=== PATIENT | male | born 1960 | race Caucasian/White ===

== ENCOUNTER 2025-01-27 08:43 | Inpatient (IN) | payer MEDICARE, BC ==
[~2025-01-27] VITALS: Ht 167.6 cm; Wt 71.9 kg
[2025-01-27] VITALS (8 sets, daily range): BP systolic 116–135; BP diastolic 82–94; PULSE 88–114; RESP 15–18; TEMP 96.9–97.6; O2SAT 96–97
--- NOTE | 2025-01-27 08:49 | ELECTROCARDIOGRAPH REPORT ---
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 Elia Reyes Measurements Intervals [place] Rate: 117 P: 82 AL: 133 QRS: 105 QRSD: 177 T: 51 QT: 455 QTc: 635 Interpretive Statements Sinus tachycardia Biatrial enlargement Consider left ventricular hypertrophy Abnormal T, probable ischemia, lateral leads Prolonged QT interval Electronically Signed On 01-27-2025 20:39:[address] Elia Reyes Please click the below link to view image of tracing.
--- NOTE | 2025-01-27 09:14 | RADIOLOGY REPORT ---
CHEST RADIOGRAPH Indication: CP Technique: Single frontal view of the chest was obtained COMPARISON: None FINDINGS: Lines and Tubes: None Lungs: Clear Pleura: No effusion. No pneumothorax. Cardiomediastinal contours: Cardiomegaly Bones: Unremarkable IMPRESSION: Cardiomegaly
[2025-01-27 09:43] LABS: HEMATOCRIT 39.3 % (42.0-52.0); HEMOGLOBIN 13.3 g/dl (14.0-17.9); MEAN CORPUSCULAR HEMOGLOBIN 26.8 PG (27.0-31.0); MEAN CORPUSCULAR HGB CONC 33.8 g/dL (33.0-36.5); MEAN CORPUSCULAR VOLUME 79.2 FL (78-98); MEAN PLATELET VOLUME 8.9 FL (7.4-10.4); PLATELET COUNT 181 X10'3 (140-440); RED BLOOD COUNT 4.97 X10'6 (4.70-6.10); RED CELL DISTRIBUTION WIDTH 16.4 % (11.5-14.5); WHITE BLOOD COUNT 4.6 X10'3 (4.5-11.0)
[2025-01-27 09:44] LABS: BASOPHILS % (AUTO) 0.2 % (0-1); EOSINOPHILS % (AUTO) 0 % (0-6); LYMPHOCYTES # (AUTO) 0.4 X10'3 (1.1-4.8); MONOCYTES # (AUTO) 0.3 X10'3 (0-0.9); MONOCYTES % (AUTO) 5.8 % (2-12)
--- NOTE | 2025-01-27 09:50 | Physician Documentation ---
History of Present Illness ~ Chief Complaint: Shortness of Breath Stated Complaint: SOB Time Seen by MD: 09:26 Primary Medical Doctor: NONE Mode of Arrival: POV HPI 64-year-old male who presents for acute onset shortness of breath that started yesterday. Patient states yesterday after he woke up he noticed that he is getting very short of breath. The shortness of breath has continued and has worsened ever since. He states that he feels like his heart is racing and that he can take in deep breaths. He denies any chest pain, fever, chills or any other associated symptoms. No significant past medical history. Denies any recent travel. He does smoke cigars daily. Medication Reconciliation Allergies: Coded Allergies: No Known Allergies (Unverified , 01/27/25) Review of Systems All Other Systems at this time: Reviewed and Negative Physical Exam Vital Signs: Temperature: 99.0, Source: Oral, Heart Rate: 116, Respiratory Rate: 26, BP: 150/88, Pulse Oximetry: 96, Weight: 71.900 Oxygen Flow Rate: 0 Physical Exam I have reviewed the triage vitals. CONST: Well developed and well nourished. In no acute distress HENT: Head Atraumatic EYES: Pupils are equal, round and reactive to light. Normal conjunctiva NECK: Normal range of motion. Supple. CARDIO: Tachycardic, regular rhythm No murmurs, rubs, or gallops. S1, S2. PULM/CHEST: Tachypnea, lungs are clear to auscultation bilaterally ABD: Soft and nontender. Nondistended. Bowel sounds normal. No guarding. : Exam deferred MSK: No edema. No deformity. NEURO: Alert and oriented to person, place and time. Moving all extremities SKIN: Warm and dry. PSYCH: Normal mood and affect. Good eye contact. Progress Results/Orders Results/Orders Orders - DARBY VALENZUELA MD Chest,Single View (01/27/25 08:54) Monitor (01/27/25 08:54) Saline Lock (01/27/25 08:54) Oxygen (01/27/25 08:54) Hs Troponin I W Calculations (01/27/25 11:54) Hs Troponin I W Calculations (01/27/25 09:43) Culture Blood (01/27/25 09:45) * Oxygen Route-Nasal Cannula * (01/27/25 09:48) Cta Chest Abdomen Pelvis (01/27/25 09:45) Covid19 Binax Poc Result Entry (01/27/25 11:36) Completed Orders - DARBY VALENZUELA MD Electrocardiogram (01/27/25 08:46) Chest,Single View (01/27/25 08:54) Cbc/Diff (01/27/25 08:54) Hs Troponin I W Calculations (01/27/25 10:54) Lacticsepsis (01/27/25 09:45) Normal Saline 500ml Iv Soln (Sodium Chlo (01/27/25 09:45) Morphine 2mg/Ml Inj. (Morphine Inj.) (01/27/25 09:50) Aspirin 325mg Enteric-Coated (Ecotrin 32 (01/27/25 09:50) CMP (01/27/25 10:54) D-Dimer (01/27/25 10:54) PBNP (01/27/25 10:55) Pt Inr (01/27/25 10:55) PTT (01/27/25 10:55) Iohexol 350mg/Ml 100ml (Omnipaque 350mg/ (01/27/25 11:29) Cta Chest Abdomen Pelvis (01/27/25 09:45) Medications Received in ER Medications (Trade) Dose Ordered Sig/Braden Route PRN Reason Start Time Stop Time Status Last Admin Dose Admin Sodium Chloride 500 ml @ 500 mls/hr ONCE ONCE IV 01/27/25 09:45 01/27/25 10:44 DC 01/27/25 10:04 500 MLS/HR (morphine inj.) 2 mg ONCE ONCE IV 01/27/25 09:50 01/27/25 09:51 DC 01/27/25 10:07 2 MG (Ecotrin 325MG tablet) 1 tab ONCE ONCE PO 01/27/25 09:50 01/27/25 09:51 DC 01/27/25 10:07 1 TAB Vital Signs 01/27/25 01/27/25 01/27/25 01/27/25 08:52 09:10 09:15 10:01 Temp 99.0 Pulse 117 116 114 Resp 22 25 26 18 B/P (MAP) 149/95 150/88 (108) 144/90 (108) Pulse Ox 98 96 97 O2 Flow Rate 0 0 2.0 01/27/25 01/27/25 01/27/25 01/27/25 10:01 10:07 11:06 11:24 Pulse 112 Resp 22 16 16 B/P (MAP) 147/101 (116) Pulse Ox 97 94 O2 Delivery Nasal Cannula* O2 Flow Rate 2 2.0 FiO2 28 Laboratory Tests Test 01/27/25 09:04 01/27/25 10:00 01/27/25 10:51 01/27/25 11:40 White Blood Count 4.6 Red Blood Count 4.97 Hemoglobin 13.3 L Hematocrit 39.3 L Mean Corpuscular Volume 79.2 Mean Corpuscular Hemoglobin 26.8 L Mean Corpuscular Hemoglobin Concent 33.8 Red Cell Distribution Width 16.4 H Platelet Count 181 Mean Platelet Volume 8.9 Neutrophils (%) (Auto) 86.0 H Lymphocytes (%) (Auto) 8.0 L Monocytes (%) (Auto) 5.8 Eosinophils (%) (Auto) 0 Basophils (%) (Auto) 0.2 Neutrophils # (Auto) 4.0 Lymphocytes # (Auto) 0.4 L Monocytes # (Auto) 0.3 Eosinophils # (Auto) 0.0 Basophils # (Auto) 0.0 CBC Comment Chemistry Comments Lactic Acid Level 1.7 Prothrombin Time 12.1 H INR International Normalized Ratio 1.2 Activated Partial Thromboplast Time 24 D-Dimer 0.61 H D-Dimer Comment Coagulation Comments Sodium Level 129 L Potassium Level 4.1 Chloride Level 98 L Carbon Dioxide Level 26.1 Anion Gap 5 L Blood Urea Nitrogen 16 Creatinine 1.00 Estimated GFR/1.73 m2 75 BUN/Creatinine Ratio 16.0 Glucose Level 135 H Calcium Level 8.0 L Total Bilirubin 0.7 Aspartate Amino Transf (AST/SGOT) 55 H Alanine Aminotransferase (ALT/SGPT) 52 Alkaline Phosphatase 58 Troponin I High Sensitivity 204 *H Pro-B-Type Natriuretic Peptide 74319 H Total Protein 6.0 L Albumin 3.3 L Globulin 2.7 Albumin/Globulin Ratio 1.2 SARS-CoV-2 Antigen (Rapid) Negative Microbiology Date/Time Source Procedure Growth Status 01/27/25 10:02 Blood Arm Left Blood Culture - Preliminary NEGATIVE (LESS THAN 24 HOURS) Resulted EKG/XRAY/CT/US/VASC/MRI CT : Impression CLINICAL INFORMATION: Chest pain. Pulmonary embolism or dissection. TECHNIQUE:Axial CTA images of the chest were obtained after the uneventful administration of, abdomen, and pelvis 100 mL of Omnipaque 350 IV contrast. Coronal and sagittal reformatted images and MIP images were obtained, reviewed, and stored. One or more of the following dose reduction techniques were used: Automated exposure control. Adjustment of mA and/or kV according to patient size. CTDIvol = 18.1, 55.27 mGy DLP = 1303.91 mGy-cm COMPARISON: Chest radiograph dated 01/27/2025. FINDINGS: Pulmonary arteries: No evidence of pulmonary embolism. Aorta: No thoracic abdominal aortic aneurysm or evidence of dissection. Origins of the brachiocephalic, left common carotid, and left subclavian arteries are patent. Common origin of the brachiocephalic and left common carotid arteries. Origins of the celiac artery, SMA, bilateral renal arteries, and FELICIA are patent. Cardiac: Moderate cardiomegaly. Mild coronary artery calcification. Moderate calcified plaque. Mediastinum/lizzy: Prominent mediastinal lymph nodes, with the largest measuring up to 1.8 x 1.3 cm in the right lower paratracheal station, possibly reactive. Lungs: Consolidation in the posterior right lower lobe with adjacent ground- glass opacities, likely infectious or inflammatory in nature. Mild dependent atelectasis in the left lower lobe. Trace bilateral pleural effusions. Chest wall: No mass or other abnormality. Abdomen/pelvis: There is reflux of contrast into the IVC and hepatic veins suggesting a degree of right heart failure. Small subcentimeter low-attenuation lesions in the liver are likely cysts, but the smaller lesions are too small to characterize. There is diffuse hepatic steatosis. No calcified gallstones visualized in the gallbladder. The spleen, pancreas, and adrenal glands are unremarkable. No hydronephrosis in either kidney. There are cysts in the right kidney. Mild bilateral perinephric stranding. No retroperitoneal lymphadenopathy. Nonspecific nondilated fluid-filled small bowel loops. No small bowel obstruction. Appendix is unremarkable. Scattered colonic diverticula without adjacent inflammatory changes to suggest diverticulitis. Mildly distended bladder. Prostate is mildly enlarged. Bones: No acute fracture or suspicious intraosseous lesions. IMPRESSION: 1. No evidence of pulmonary embolism. 2. No thoracic or abdominal aortic aneurysm or evidence of dissection. 3. Focal consolidation in the left lower lobe with adjacent ground-glass opacities, likely infectious or inflammatory in nature. Correlate with clinical findings. 4. Moderate cardiomegaly and findings described above suggesting a degree of right heart failure in the appropriate clinical setting. Correlate with clinical findings. 5. Nonspecific nondilated fluid-filled small bowel loops. Findings may be seen with ileus or enteritis in the appropriate clinical setting. No small bowel obstruction. 6. Scattered colonic diverticula without adjacent inflammatory changes to suggest diverticulitis. 7. Mild bilateral perinephric stranding is nonspecific. Correlate clinically to exclude ascending urinary tract infection. 8. Gallbladder is distended. No calcified gallstones visualized. 9. Additional findings as detailed above. Departure Referrals: NO PRIMARY CARE PROVIDER (PCP) DARBY VALENZUELA MD January 27, 2025 09:50
[2025-01-27] MEDS: normal saline 500ml IV soln 500 ML IV ONE (10:04)
[2025-01-27] MEDS: aspirin 325mg tablet, delayed-release (Ecotrin) PO ONE (10:07)
[2025-01-27] MEDS: morphine 2 MG/ML inj. syringe IV ONE (10:07)
[2025-01-27 11:19] LABS: APTT 24 SECONDS (22-32); D-DIMER 0.61 MG/L FEU (0-0.50); INR 1.2 INR; PROTHROMBIN TIME 12.1 SECONDS (9.0-12.0)
[2025-01-27 11:25] LABS: ALANINE AMINOTRANSFERASE 52 U/L (12-78); ALBUMIN 3.3 G/DL (3.4-5.0); ALBUMIN/GLOBULIN RATIO 1.2 (1.1-1.5); ALKALINE PHOSPHATASE 58 IU/L (46-116); ANION GAP 5 (8-16); ASPARTATE AMINO TRANSFERASE 55 U/L (10-37); BILIRUBIN,TOTAL 0.7 MG/DL (0.1-1.0); BLOOD UREA NITROGEN 16 MG/DL (7-18); CHLORIDE 98 MMOL/L (99-107); GLUCOSE 135 MG/DL (70-104); POTASSIUM 4.1 MMOL/L (3.5-5.1); SODIUM 129 MMOL/L (135-145); TOTAL CARBON DIOXIDE 26.1 MMOL/L (24-32); eCRCL 66 ML/MIN; eGFR 75 ML/MIN
[2025-01-27 11:28] LABS: PRO BRAIN NATRIURETIC PEPTIDE 29348 PG/ML (0-125)
[2025-01-27] MEDS ORDERED: iohexol 350MG/ML 100ml bottle IV ONE (11:29)
--- NOTE | 2025-01-27 12:40 | RADIOLOGY REPORT ---
CLINICAL INFORMATION: Chest pain. Pulmonary embolism or dissection. TECHNIQUE:Axial CTA images of the chest were obtained after the uneventful administration of, abdomen , and pelvis 100 mL of Omnipaque 350 IV contrast. Coronal and sagittal reformatted images and MIP amy ges were obtained, reviewed, and stored. One or more of the following dose reduction techniques were used: Automated exposure control. Adjustment of mA and/or kV according to patient size. CTDIvol = 18.1, 55.27 mGy DLP = 1303.91 mGy-cm COMPARISON: Chest radiograph dated 01/27/2025. FINDINGS: Pulmonary arteries: No evidence of pulmonary embolism. Aorta: No thoracic abdominal aortic aneurysm or evidence of dissection. Origins of the brachiocephali c, left common carotid, and left subclavian arteries are patent. Common origin of the brachiocephalic and left common carotid arteries. Origins of the celiac artery, SMA, bilateral renal arteries, and I MA are patent. Cardiac: Moderate cardiomegaly. Mild coronary artery calcification. Moderate calcified plaque. Mediastinum/lizzy: Prominent mediastinal lymph nodes, with the largest measuring up to 1.8 x 1.3 cm in the right lower paratracheal station, possibly reactive. Lungs: Consolidation in the posterior right lower lobe with adjacent ground-glass opacities, likely i nfectious or inflammatory in nature. Mild dependent atelectasis in the left lower lobe. Trace bilater al pleural effusions. Chest wall: No mass or other abnormality. Abdomen/pelvis: There is reflux of contrast into the IVC and hepatic veins suggesting a degree of rig ht heart failure. Small subcentimeter low-attenuation lesions in the liver are likely cysts, but the smaller lesions are too small to characterize. There is diffuse hepatic steatosis. No calcified galls tones visualized in the gallbladder. The spleen, pancreas, and adrenal glands are unremarkable. No hy dronephrosis in either kidney. There are cysts in the right kidney. Mild bilateral perinephric strand ing. No retroperitoneal lymphadenopathy. Nonspecific nondilated fluid-filled small bowel loops. No sm all bowel obstruction. Appendix is unremarkable. Scattered colonic diverticula without adjacent infla mmatory changes to suggest diverticulitis. Mildly distended bladder. Prostate is mildly enlarged. Bones: No acute fracture or suspicious intraosseous lesions. IMPRESSION: 1. No evidence of pulmonary embolism. 2. No thoracic or abdominal aortic aneurysm or evidence of dissection. 3. Focal consolidation in the left lower lobe with adjacent ground-glass opacities, likely infectious or inflammatory in nature. Correlate with clinical findings. 4. Moderate cardiomegaly and findings described above suggesting a degree of right heart failure in t he appropriate clinical setting. Correlate with clinical findings. 5. Nonspecific nondilated fluid-filled small bowel loops. Findings may be seen with ileus or enteriti s in the appropriate clinical setting. No small bowel obstruction. 6. Scattered colonic diverticula without adjacent inflammatory changes to suggest diverticulitis. 7. Mild bilateral perinephric stranding is nonspecific. Correlate clinically to exclude ascending uri nary tract infection. 8. Gallbladder is distended. No calcified gallstones visualized. 9. Additional findings as detailed above.
[2025-01-27] MEDS: CefTRIAXone/D5W-Rocephin 1gm 50 ML IV ONE (13:06)
[2025-01-27] MEDS: furosemide 10 MG/1 ML 10ml inj IV ONE (13:07)
[2025-01-27] MEDS: methylPREDNISolone sod succ/PF 40mg inj. IV ONE (13:11)
[2025-01-27] MEDS ORDERED: HYDROcodone/acetaminophen 5mg/325mg tablet PO PRN (13:35)
[2025-01-27] MEDS ORDERED: potassium Cl 20 mEq SR tablet PO PRN ×2 (13:35)
[2025-01-27] MEDS ORDERED: ondansetron/PF 4mg/2ml inj IV PRN (13:35)
[2025-01-27] MEDS ORDERED: magnesium sulf-water 2g/50mL 50 ML IV PRN (13:35)
[2025-01-27] MEDS ORDERED: potassium Cl 40MEQ/1/2NS 520ml 520 ML IV PRN (13:35)
[2025-01-27] MEDS ORDERED: morphine 2 MG/ML inj. syringe IV PRN (13:35)
[2025-01-27] MEDS ORDERED: magnesium sulf-water 4G/100mL 100 ML IV PRN (13:35)
[2025-01-27] MEDS ORDERED: acetaminophen 325mg tablet PO PRN ×2 (13:35)
[2025-01-27] MEDS ORDERED: magnesium Cl slow-release 64mg tablet PO PRN (13:35)
[2025-01-27] MEDS: diltiazem-NS 100mg/100ml 100 ML IV SCH (14:12)
[2025-01-27] MEDS: azithromycin/NS 500mg/250ml 250 ML IV SCH (15:19)
[2025-01-27] MEDS ORDERED: NO HOME MEDS (16:48)
--- NOTE | 2025-01-27 18:35 | CARDIOLOGY REPORT ---
APPROVED REPORT EXAM: Comprehensive 2D, Doppler, and color-flow Echocardiogram. 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 141.6 cm/s AoV VTI 16.6 cm AO Peak GR. 8.0 mmHg AO Mean GR. 4 mmHg LVOT VTI 14.31 cm LVOT Peak Eric. 92.9 cm/s OLAMIDE(VTI)/BSA 2.24 cm2/m2 OLAMIDE (VTI) 2.24 cm2 AI P 1/2 Time 352 ms Mitral Valve MV E Velocity 61.8 cm/s MV Peak Gr. 6 mmHg MV DECEL TIME 96 ms MV A Velocity 138.6 cm/s MV PHT 56 ms E/A Ratio 0.4 MVA (PHT) 3.93 cm2 MV OAdi338.8 cm/s Tricuspid Valve TR P. Velocity 310 cm/s RAP ESTIMATE 10 mmHg TR Peak Gr. 38 mmHg RVSP 48 mmHg LEFT VENTRICLE Normal LV size with severely decreased function. Mild concentric hypertrophy. There is global hypokin esis of the left ventricle. LVEF about 20%. RIGHT VENTRICLE RV is normal size with mildly decreased function. Elevated right heart pressures with an RVSP of 48 m mHg. ATRIA Left atrium is mildly dilated. AORTIC VALVE Trileaflet AV appears mildly sclerotic without stenosis. Moderate eccentric insufficiency towards the anterior mitral valve leaflet. MITRAL VALVE Mild mitral annular calcification without stenosis. Mild to moderate regurgitation. TRICUSPID VALVE The tricuspid valve is normal in structure with mild regurgitation. PULMONIC VALVE The pulmonary valve is normal in structure with physiologic insufficiency. GREAT VESSELS The aortic root is normal in size. The ascending aorta is normal in size. IVC is dilated and collapse s greater than 50% with inspiration. PERICARDIUM Normal pericardium. No effusion. Other Information Study Quality: Adequate Conclusion Normal LV size with severely decreased function. Mild concentric hypertrophy. There is global hypoki nesis of the left ventricle. LVEF about 20%. RV is normal size with mildly decreased function. Elevated right heart pressures with an RVSP of 48 m mHg. Left atrium is mildly dilated. Trileaflet AV appears mildly sclerotic without stenosis. Moderate eccentric insufficiency towards th e anterior mitral valve leaflet. Mild mitral annular calcification without stenosis. Mild to moderate regurgitation. The tricuspid valve is normal in structure with mild regurgitation. Normal pericardium. No effusion.
--- NOTE | 2025-01-27 18:41 | HISTORY AND PHYSICAL ---
History & Physical Providers to CC ~ History of Present Illness Reason for Admit\Complaint: Shortness of breaths since one day History of Present Illness Patient is 64-year-old male who does not have any primary care physician not taking any medication. He denied using any recreational drug drinks two cups of wine. He does smoke cigars on regular basis. Patient came with his concern regarding shortness of breaths associated with racing heart but no chest pain. Denied any swelling over his legs. He mentioned off and on he was getting short of breaths on exertion but yesterday it got more worse. Patient denied any other symptoms He denies any chest pain, fever, chills or any other associated symptoms. No significant past medical history. Further workup done in ER he was very tachycardic with the elevated BNP in troponin level. Signs of hyponatremia present. Hospitalist services contacted for admission for suspected congestive heart failure and possible left lower lobe pneumonia Allergies: Coded Allergies: No Known Allergies (Unverified , 01/27/25) Home Medications Home Medications Active Reported No Home Medications (Home Med List) Each Past Medical History Past Medical History No significant past medical history Past Surgical History Surgical History Comment Noncontributory Family History Family History: FH: alcohol abuse MOTHER, , Age: 40, Cause: Hypothermia due to non-environmental cause Past Social History Social History Comment He denied using any recreational drug drinks two cups of wine. He does smoke cigars on regular basis. He can ambulate ROS [facility] Review of system as mentioned above in HPI rest of the review of system unremarkable Exam Vitals: Vital Signs Date Time Temp Pulse Resp B/P (MAP) Pulse Ox O2 Delivery O2 Flow Rate FiO2 01/27/25 16:18 97.6 100 18 116/82 (93) Nasal Cannula 2.0 01/27/25 15:18 98 01/27/25 13:12 28 General: General-patient not in any acute distress, alert awake oriented, chronically ill-appearing, age-appropriate HEENT-atraumatic normocephalic, neck supple without elevated JVD, no thyromegaly or carotid bruit. No lymphadenopathy bilaterally. Eyes-no icterus or pallor seen in eyes Chest-decreased breath sounds over lung bases to auscultation bilaterally, breathing nonlabored no tachypnea, no wheezing, Heart-S1-S2 normal, regular heart rate no murmur Abdomen bowel sounds positive on auscultation, soft nondistended nontender no guarding, no rigidity Skin no active skin rash Neurology-grossly intact, nonfocal alert awake oriented Extremity- trace pedal edema able to move all 4 extremities Psychiatry - patient is not confused or agitated cooperated during physical examination Diagnostic Data Last Recorded Lab Results: 01/27/25 0904 01/27/25 1051 Diagnostic Data: Laboratory Tests Test 01/27/25 10:51 Prothrombin Time 12.1 SECONDS (9.0-12.0) H INR International Normalized Ratio 1.2 INR Activated Partial Thromboplast Time 24 SECONDS (22-32) D-Dimer 0.61 MG/L FEU (0-0.50) H D-Dimer Comment Coagulation Comments Advance Care Planning Advanced Care plannin - 30 Minutes Additional Plan Patient is 64-year-old male who does not have any primary care physician not taking any medication. Further workup done in ER he was very tachycardic with the elevated BNP in troponin level. Patient is admitted for suspected congestive heart failure and possible left lower lobe pneumonia # suspected acute congestive heart failure-echo ordered and we will follow the results. patient is started on diuretic therapy # left lower lobe with adjacent ground-glass opacities, likely community- acquired pneumonia- patient is started on antibiotic. # possible COPD without clinical exacerbation- empirically started on steroids and antibiotics and nebulizer tx # chronic alcohol use and cigar use-patient is advised to stop smoking cigars in alcohol and risks explained # Signs of hyponatremia present likely due to alcohol use # code status discussed with the patient patient wishes to stay full code . Patient's current condition is guarded I will continue to follow patient in a.m. Date of Service: January 27, 2025 Billing Provider: KIMBERLEY PADRON MD Common Visit Codes: 85860-MCEXKYW INP/OBS CARE (HIGH) Secondary Visit Codes: 38002-CLGHA CHNG SMOKING 3-10M, 66469-CONEYLGD CARE PLAN 30 MINUTES KIMBERLEY PADRON MD January 27, 2025 18:41
[2025-01-27] MEDS: furosemide 40mg/4ml inj IV SCH (20:43)
[2025-01-27] MEDS: methylPREDNISolone sod succ/PF 40mg inj. IV SCH (20:43)
[2025-01-27] MEDS: heparin, porcine 5000 units/ml vial SQ SCH (20:44)
[2025-01-27] MEDS: carVEDilol 3.125mg tablet PO SCH (20:44)
[2025-01-27 23:46] LABS: URINE AMPHETAMINE SCREEN NEGATIVE (Neg); URINE BARBITUATE SCREEN NEGATIVE (Neg); URINE BENZODIAZEPINES SCREEN NEGATIVE (Neg); URINE CANNABINOID SCREEN NEGATIVE (Neg); URINE COCAINE SCREEN NEGATIVE (Neg); URINE METHADONE SCREEN NEGATIVE (Neg); URINE OPIATE SCREEN NEGATIVE (Neg); URINE PHENCYCLIDINE SCREEN NEGATIVE (Neg)
[2025-01-28] VITALS (12 sets, daily range): BP systolic 103–135; BP diastolic 62–90; PULSE 70–88; RESP 13–20; TEMP 97–97.8; O2SAT 94–97
[2025-01-28 07:25] LABS: BASOPHILS % (AUTO) 0.1 % (0-1); EOSINOPHILS % (AUTO) 0 % (0-6); HEMATOCRIT 42.2 % (42.0-52.0); HEMOGLOBIN 14.1 g/dl (14.0-17.9); LYMPHOCYTES # (AUTO) 0.4 X10'3 (1.1-4.8); LYMPHOCYTES % (AUTO) 7.5 % (21-51); MEAN CORPUSCULAR HEMOGLOBIN 26.7 PG (27.0-31.0); MEAN CORPUSCULAR HGB CONC 33.4 g/dL (33.0-36.5); MEAN PLATELET VOLUME 8.2 FL (7.4-10.4); MONOCYTES # (AUTO) 0.2 X10'3 (0-0.9); MONOCYTES % (AUTO) 4.4 % (2-12); NEUTROPHILS # (AUTO) 4.2 X10'3 (1.8-7.7); PLATELET COUNT 116 X10'3 (140-440); RED BLOOD COUNT 5.28 X10'6 (4.70-6.10); RED CELL DISTRIBUTION WIDTH 16.7 % (11.5-14.5); WHITE BLOOD COUNT 4.8 X10'3 (4.5-11.0)
[2025-01-28 07:53] LABS: ALANINE AMINOTRANSFERASE 110 U/L (12-78); ALBUMIN 3.2 G/DL (3.4-5.0); ALBUMIN/GLOBULIN RATIO 1.1 (1.1-1.5); ALKALINE PHOSPHATASE 53 IU/L (46-116); ANION GAP 7 (8-16); ASPARTATE AMINO TRANSFERASE 106 U/L (10-37); BILIRUBIN,TOTAL 0.7 MG/DL (0.1-1.0); BLOOD UREA NITROGEN 22 MG/DL (7-18); BUN/CREATININE RATIO 25.6 (10.0-20.0); CALCIUM 8.4 MG/DL (8.5-10.1); CHLORIDE 101 MMOL/L (99-107); CREATININE 0.86 MG/DL (0.60-1.10); GLUCOSE 163 MG/DL (70-104); POTASSIUM 3.7 MMOL/L (3.5-5.1); SODIUM 137 MMOL/L (135-145); TOTAL CARBON DIOXIDE 28.9 MMOL/L (24-32); TOTAL PROTEIN 6.1 G/DL (6.4-8.2); eCRCL 76 ML/MIN; eGFR 89 ML/MIN
[2025-01-28] MEDS: CefTRIAXone 2gm/D5W 50ml BAG 50 ML IV SCH (09:04)
[2025-01-28] MEDS: EMPAGLIFLOZIN 10 MG TABLET PO SCH (11:15)
--- NOTE | 2025-01-28 14:31 | PROGRESS NOTE- Residence ---
Progress Note - Resident Providers to CC Resident Creating Document: AISSATOU EMILJUSTYNA Byrnes, RES ~ Antibiotic Timeout Antibiotic Ordered?: Yes Subjective PCP: None. He usually goes to [facility]. The patient has been evaluated at bedside. The patient reports significant improvement of shortness of breath. Objective Vital Signs Date Time Temp Pulse Resp B/P (MAP) Pulse Ox O2 Delivery O2 Flow Rate FiO2 01/28/25 11:00 97.2 88 16 114/84 (94) 97 Room Air 01/28/25 05:06 0 21 Physical exam: General: Well alert, well oriented, not confused, not agitated, not in acute distress, well cooperated during the physical. HEENT: Conjunctive are pink, sclerae clear, no icterus, pupil is equal in both sides, reactive to light, no ear discharge, no pharyngeal erythema or an edema. Neck: Supple, no JVD, no lymphadenopathy and thyromegaly. Chest: Decreased air entry in bilateral lungs, mild wheezing bilaterally. Cardiovascular: S1-S2 regular sinus rhythm and, regular rate, no gallops, no rubs, no murmurs Abdomen: No visible peristalsis, Bowel sounds present on auscultation, soft, nontender, no guarding, no rigidity Extremities: No obvious deformities, no pitting edema bilaterally, capillary refill intact, peripheral pulsations are intact on both sides Central Nervous System: No focal neurological deficits, no motor or sensory weakness in all 4 extremities, could move all 4 extremities, 2+ deep tendon reflexes, negative Babinski. Musculoskeletal: No joint swelling, deformities, inflammations, and no scoliosis and back tenderness Skin: Warm and dry. Result Diagram: 01/28/25 0630 01/28/25 0630 Coagulation Studies Laboratory Tests Test 01/27/25 10:51 Prothrombin Time 12.1 SECONDS (9.0-12.0) H INR International Normalized Ratio 1.2 INR Activated Partial Thromboplast Time 24 SECONDS (22-32) D-Dimer 0.61 MG/L FEU (0-0.50) H D-Dimer Comment Coagulation Comments Assessment Assessment 64-year-old male patient who came to the hospital with chief complaint of shortness of breath, orthopnea. Plan Plan Acute systolic congestive heart failure with LVEF of 20%: Stage C/NYHA Class II: Type 2 demand ischemia secondary to acute systolic congestive heart failure: Patient came to the hospital with chief complaint of shortness of breath. On physical exam 1+ pedal edema was evidenced on admission. ProBNP 38405. Troponin levels 204-242-173. Echocardiogram: Normal LV size with severely decreased function. Mild concentric hypertrophy. There is global hypokinesis of the left ventricle. LVEF about 20%. RV is normal size with mildly decreased function. Elevated right heart pressures with an RVSP of [address] Immanuel Hernandes consulted. Awaiting recommendations. Furosemide 40 mg IV b.i.d. Jardiance 10 mg daily. Sacubitril/valsartan 24 mg-26 mg tablet b.i.d. Spironolactone 25 mg daily. Carvedilol 3.125 mg b.i.d.. Acute exacerbation of COPD: Community-acquired pneumonia: POA: Covering Gram-positive and Gram-negative microorganisms: Cor pulmonale: Pulmonary embolism-ruled out: The patient admits to be smoking one cigar daily for 21 years. Echocardiogram with RVSP of 48 mmHg. Elevated right heart pressures. CTA of the chest: No evidence of pulmonary embolism. Presence of focal consolidation in the left lower lobe, adjacent ground-glass opacities, likely infectious or inflammatory. Bilateral wheezing is evidenced on physical exam. Azithromycin 500 mg p.o. last dose 01/29/2025. Ceftriaxone 1 g daily. Day 2. To be completed five days. Methylprednisolone 30 mg b.i.d. Culturelle 51860 mmu b.i.d. DuoNebs q.6h scheduled. DuoNeb q.4h PRN. The patient will require PFT as an outpatient. Smoking use disorder: Patient admits to drink one glass of wine twice a week. Smokes cigar every day. Strong recommendation for smoking and alcohol cessation given to the patient. Hyponatremia-resolved: Continue to monitor CMP. Code status: Full code DVT prophylaxis: Heparin 5000 units b.i.d. Analgesia/sedation: Morphine Line/tube: PIV GI prophylaxis: None Nutrition: Heart healthy diet PT: Yes Prognosis: Guarded Disposition: Continue medical management. Cardiology consulted awaiting recommendations. Justyna Coy Internal Medicine Resident [facility] Date of Service: January 28, 2025 Billing Provider: KIMBERLEY PADRON MD,JUSTYNA EDMONDS, RES January 28, 2025 14:31
--- NOTE | 2025-01-28 16:50 | CONSULTATION REPORT ---
DEVI HERNANDEZ Soniya HEALTH AND SAFETY TECHNICIAN 01/28/25 1650: History of Present Illness Providers to CC CC: SARA ESCALONA MD ~ Reason for Admit\Admit Dx: Cardiology consultation Refering MD: NONE History of Present Illness This is a 64 year old complains of increased shortness for breath over the past year. No chest pain or pressure. No past medical history. No surgeries. Does not have a primary care provider. Found to have an LVEF of 20% and cardiology consultation was requested with the on-call manager msw, Dr. Yao. Allergies: Coded Allergies: No Known Allergies (Unverified , 01/27/25) Home Medications Home Medications Active Reported No Home Medications (Home Med List) Each Past Medical History Medical History Comment No medical history Past Surgical History Surgical History Comment No surgical history Past Family History Family History: FH: alcohol abuse MOTHER, , Age: 40, Cause: Hypothermia due to non-environmental cause Past Social History Social History Comment Smokes cigars but plans to quit. Drinks wine but plans to quit this is well. 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 Physical Exam Last Vital Signs Recorded: RN Vital Signs have been reviewed: Yes, Temperature: 97.8, Source: Oral, Heart Rate: 84, Respiratory Rate: 18, BP: 106/62, Pulse Oximetry: 97, Weight: 71.900 Physical Exam General: Awake, alert, oriented. No apparent distress Neck: Supple. Normal range of motion. No JVD Respiratory: Lungs are clear to auscultation bilaterally. No respiratory distress. Chest: Normal shape and size. No accessory muscle use. Cardiovascular: Regular rate and rhythm. S1-S2. No murmur, gallop, rub. Gastrointestinal: Abdomen is soft. Nontender to palpation. Bowel sounds present. Extremities: No lower extremity edema, cyanosis or clubbing. Neurologic: Alert and oriented x4. Nonfocal Psychiatric: Normal mood and affect. Skin: Normal color. Warm and dry. Review of Systems ROS Currently denies shortness or breath or dyspnea on exertion. No chest pain or pressure. Did have shortness for breath prior to arrival which has resolved. Results EKG EKG Sinus tachycardia rate of 117. Left bundle branch block. Echocardiogram Echocardiogram Conclusion Normal LV size with severely decreased function. Mild concentric hypertrophy. There is global hypokinesis of the left ventricle. LVEF about 20%. RV is normal size with mildly decreased function. Elevated right heart pressures with an RVSP of 48 mmHg. Left atrium is mildly dilated. Trileaflet AV appears mildly sclerotic without stenosis. Moderate eccentric insufficiency towards the anterior mitral valve leaflet. Mild mitral annular calcification without stenosis. Mild to moderate regurgitation. The tricuspid valve is normal in structure with mild regurgitation. Normal pericardium. No effusion. Dictated by:KATIUSKA YAO MD Dictation date and time:01/27/251833 Electronically Signed by: KATIUSKA YAO MD Date and Time: 01/27/251834 Other Other Ordering Physician: DARBY VALENZUELA MD Exam: CTA CHEST ABDOMEN PELVIS CLINICAL INFORMATION: Chest pain. Pulmonary embolism or dissection. TECHNIQUE:Axial CTA images of the chest were obtained after the uneventful administration of, abdomen, and pelvis 100 mL of Omnipaque 350 IV contrast. Coronal and sagittal reformatted images and MIP images were obtained, reviewed, and stored. One or more of the following dose reduction techniques were used: Automated exposure control. Adjustment of mA and/or kV according to patient size. CTDIvol = 18.1, 55.27 mGy DLP = 1303.91 mGy-cm COMPARISON: Chest radiograph dated 01/27/2025. FINDINGS: Pulmonary arteries: No evidence of pulmonary embolism. Aorta: No thoracic abdominal aortic aneurysm or evidence of dissection. Origins of the brachiocephalic, left common carotid, and left subclavian arteries are patent. Common origin of the brachiocephalic and left common carotid arteries. Origins of the celiac artery, SMA, bilateral renal arteries, and FELICIA are patent. Cardiac: Moderate cardiomegaly. Mild coronary artery calcification. Moderate calcified plaque. Mediastinum/lizzy: Prominent mediastinal lymph nodes, with the largest measuring up to 1.8 x 1.3 cm in the right lower paratracheal station, possibly reactive. Lungs: Consolidation in the posterior right lower lobe with adjacent ground- glass opacities, likely infectious or inflammatory in nature. Mild dependent atelectasis in the left lower lobe. Trace bilateral pleural effusions. Chest wall: No mass or other abnormality. Abdomen/pelvis: There is reflux of contrast into the IVC and hepatic veins suggesting a degree of right heart failure. Small subcentimeter low-attenuation lesions in the liver are likely cysts, but the smaller lesions are too small to characterize. There is diffuse hepatic steatosis. No calcified gallstones visualized in the gallbladder. The spleen, pancreas, and adrenal glands are unremarkable. No hydronephrosis in either kidney. There are cysts in the right kidney. Mild bilateral perinephric stranding. No retroperitoneal lymphadenopathy. Nonspecific nondilated fluid-filled small bowel loops. No small bowel obstruction. Appendix is unremarkable. Scattered colonic diverticula without adjacent inflammatory changes to suggest diverticulitis. Mildly distended bladder. Prostate is mildly enlarged. Bones: No acute fracture or suspicious intraosseous lesions. IMPRESSION: 1. No evidence of pulmonary embolism. 2. No thoracic or abdominal aortic aneurysm or evidence of dissection. 3. Focal consolidation in the left lower lobe with adjacent ground-glass opacities, likely infectious or inflammatory in nature. Correlate with clinical findings. 4. Moderate cardiomegaly and findings described above suggesting a degree of right heart failure in the appropriate clinical setting. Correlate with clinical findings. 5. Nonspecific nondilated fluid-filled small bowel loops. Findings may be seen with ileus or enteritis in the appropriate clinical setting. No small bowel obstruction. 6. Scattered colonic diverticula without adjacent inflammatory changes to suggest diverticulitis. 7. Mild bilateral perinephric stranding is nonspecific. Correlate clinically to exclude ascending urinary tract infection. 8. Gallbladder is distended. No calcified gallstones visualized. 9. Additional findings as detailed above. Diagram Lab Result Diagram: 01/28/25 0630 01/28/25 0630 Assessment/Plan Additional Plan This is 64-year-old male who presented with shortness for breath. The following is his problem list: Heart failure with reduced ejection fraction, acute LVEF 20%. NT proBNP 73015 -started on guideline directed medical therapy --continue spironolactone --continue Entresto --continue Jardiance --continue carvedilol --follow up outpatient within 1-2 weeks. We will plan for ischemic evaluation. Minimally elevated troponins 204, 242, 173 No chest pain or pressure Likely VT type 2 secondary to heart failure Recommend medical management --aspirin 81 mg daily --check lipids. High intensity statin to keep goal LDL less than 55 Pneumonia --management per hospitalist Supervising MD Supervising Physician: KATIUSKA Frost MD 01/28/259: History of Present Illness Providers to CC CC: SARA ESCALONA MD Allergies: Coded Allergies: No Known Allergies (Unverified , 01/27/25) Past Family History Family History: FH: alcohol abuse MOTHER, , Age: 40, Cause: Hypothermia due to non-environmental cause Results Diagram Lab Result Diagram: 01/28/25 0630 01/28/25 0630 Assessment/Plan Additional Plan Agree with note as per PA/HEALTH AND SAFETY TECHNICIAN. Will need an outpatient ischemic evaluation. Start GDMT as mentioned above. DEVI HERNANDEZ NP January 28, 2025 16:50 KATIUSKA YAO MD January 28, 2025 22:09
[2025-01-28] MEDS ORDERED: ipratropium/albuterol 3ml nebule NEB PRN (17:00)
[2025-01-28 19:38] LABS: CHOL/HDL RATIO 2.3 (0.00-4.99); CHOLESTEROL 108 MG/DL (0-200); HDL CHOLESTEROL 46 MG/DL (35-60); LDL CHOLESTEROL 57 MG/DL (50-100); TRIGLYCERIDES 60 MG/DL (20-135)
[2025-01-28] MEDS: lactobacillus rhamnosus 10,000 MMU CELLS/CAPSULE PO SCH (19:40)
[2025-01-28] MEDS: sacubitril/valsartan 24mg-26mg tablet PO SCH (19:40)
[2025-01-28] MEDS: methylPREDNISolone sod succ/PF 40mg inj. IV SCH (19:41)
[2025-01-28] MEDS: ipratropium/albuterol 3ml nebule NEB SCH (20:37)
[2025-01-29] VITALS (9 sets, daily range): BP systolic 101–112; BP diastolic 64–74; PULSE 70–81; RESP 11–21; TEMP 97.6–98; O2SAT 94–98
[2025-01-29 06:57] LABS: BASOPHILS % (AUTO) 0 % (0-1); EOSINOPHILS % (AUTO) 0 % (0-6); HEMATOCRIT 46.8 % (42.0-52.0); HEMOGLOBIN 15.6 g/dl (14.0-17.9); LYMPHOCYTES # (AUTO) 0.4 X10'3 (1.1-4.8); LYMPHOCYTES % (AUTO) 3.6 % (21-51); MEAN CORPUSCULAR HEMOGLOBIN 26.7 PG (27.0-31.0); MEAN CORPUSCULAR HGB CONC 33.2 g/dL (33.0-36.5); MEAN CORPUSCULAR VOLUME 80.4 FL (78-98); MEAN PLATELET VOLUME 8.3 FL (7.4-10.4); MONOCYTES # (AUTO) 0.4 X10'3 (0-0.9); MONOCYTES % (AUTO) 4.3 % (2-12); NEUTROPHILS # (AUTO) 9.7 X10'3 (1.8-7.7); NEUTROPHILS % (AUTO) 92.1 % (42-75); PLATELET COUNT 140 X10'3 (140-440); RED BLOOD COUNT 5.82 X10'6 (4.70-6.10); RED CELL DISTRIBUTION WIDTH 16.3 % (11.5-14.5); WHITE BLOOD COUNT 10.5 X10'3 (4.5-11.0)
[2025-01-29 07:20] LABS: ALANINE AMINOTRANSFERASE 120 U/L (12-78); ALBUMIN 3.4 G/DL (3.4-5.0); ALBUMIN/GLOBULIN RATIO 1.1 (1.1-1.5); ALKALINE PHOSPHATASE 58 IU/L (46-116); ANION GAP 7 (8-16); ASPARTATE AMINO TRANSFERASE 76 U/L (10-37); BILIRUBIN,TOTAL 0.6 MG/DL (0.1-1.0); BLOOD UREA NITROGEN 30 MG/DL (7-18); BUN/CREATININE RATIO 24.8 (10.0-20.0); CALCIUM 8.5 MG/DL (8.5-10.1); CHLORIDE 99 MMOL/L (99-107); CREATININE 1.21 MG/DL (0.60-1.10); GLUCOSE 147 MG/DL (70-104); POTASSIUM 3.5 MMOL/L (3.5-5.1); PRO BRAIN NATRIURETIC PEPTIDE 6157 PG/ML (0-125); SODIUM 137 MMOL/L (135-145); TOTAL CARBON DIOXIDE 31.3 MMOL/L (24-32); TOTAL PROTEIN 6.6 G/DL (6.4-8.2); eCRCL 54 ML/MIN; eGFR 60 ML/MIN
[2025-01-29] MEDS: azithromycin 250mg tablet PO SCH (08:33)
[2025-01-29] MEDS: spironolactone 25 MG tablet PO SCH (08:34)
[2025-01-29] MEDS: aspirin 81mg tab.chew PO SCH (08:34)
[2025-01-29] MEDS ORDERED: ALBU90AE INH (12:35)
[2025-01-29] MEDS ORDERED: SPIR25TA PO (12:35)
[2025-01-29] MEDS ORDERED: CARV-164 PO (12:35)
[2025-01-29] MEDS ORDERED: CEFD300C3 PO (12:35)
[2025-01-29] MEDS ORDERED: ASPI81TA53 PO (12:35)
[2025-01-29] MEDS ORDERED: LACT1CAP26 PO (12:35)
[2025-01-29] MEDS ORDERED: EMPA10TA PO (12:35)
[2025-01-29] MEDS ORDERED: SACU1TAB PO (12:35)
[2025-01-29] MEDS ORDERED: PRED10TA23 PO (12:35)
--- NOTE | 2025-01-29 15:10 | DISCHARGE SUMMARY-Residence ---
Discharge Summary Providers to CC Resident Creating Document: JUSTYNA PIERCE KENDAL, RES ~ Discharge Summary Admission Diagnosis: Suspected congestive heart failure new onset, left lower lobe pneumonia Hospital Course DATE OF ADMISSION: 01/27/2025 DATE OF DISCHARGE: 01/29/2025 Laboratory: WBC 10.5, RBC 5.82, hemoglobin 15.6, hematocrit 46.8, MCV 80.4, platelets 140, sodium 137, potassium 3.5, chloride 99, carbon dioxide 31.3, BUN 30, creatinine 1.21, GFR 60, glucose 147. Imaging: Echocardiogram: Normal LV size with severely decreased function. Mild concentric hypertrophy. There is global hypokinesis of the left ventricle. LVEF about 20%. RV is normal size with mildly decreased function. Elevated right heart pressures with an RVSP of 48 mmHg. Left atrium is mildly dilated. Trileaflet AV appears mildly sclerotic without stenosis. Moderate eccentric insufficiency towards the anterior mitral valve leaflet. Mild mitral annular calcification without stenosis. Mild to moderate regurgitation. The tricuspid valve is normal in structure with mild regurgitation. Normal pericardium. No effusion. CTA chest: No evidence of pulmonary embolism. No thoracic or abdominal aortic aneurysm or evidence of dissection. Focal consolidation in the left lower lobe with adjacent ground-glass opacities, likely infectious or inflammatory in nature. Correlate with clinical findings. Moderate cardiomegaly and findings described above suggesting a degree of right heart failure in the appropriate clinical setting. Correlate with clinical findings. Nonspecific nondilated fluid-filled small bowel loops. Findings may be seen with ileus or enteritis in the appropriate clinical setting. No small bowel obstruction. Scattered colonic diverticula without adjacent inflammatory changes to suggest diverticulitis. Mild bilateral perinephric stranding is nonspecific. Correlate clinically to exclude ascending urinary tract infection. Gallbladder is distended. No calcified gallstones visualized. Additional findings as detailed above. Chest x-ray: Cardiomegaly Discharge Diagnosis\Comment: Acute systolic congestive heart failure with LVEF of 20% Stage C/NYHA Class II Type 2 demand ischemia secondary to acute systolic congestive heart failure Acute exacerbation of COPD Community-acquired pneumonia: POA: Covering Gram-positive and Gram-negative microorganisms Cor pulmonale Pulmonary embolism-ruled out Smoking use disorder Hyponatremia-resolved Operations\Procedures: None Consultants: Cardiology, Dr. Hernandes Complications: None Condition on DC: Stable New Medications: Albuterol Sulfate (Proair Respiclick) 90 Mcg Aer.pow.ba 2 PUFFS INH Q6H PRN PRN for shortness of breath, #1 EA 0 Refills Cefdinir (Cefdinir) 300 Mg Capsule 1 CAP PO Q12H for 2 Days, #4 CAP 0 Refills Lactobacillus Rhamnosus (Culturelle) 10 Billion Cell Capsule 1 CAP PO BID for 30 Days, #60 CAP 0 Refills Prednisone (Prednisone) 10 Mg Tablet 0 PO DAILY, #21 TAB Take 4 tabs daily x2 days, then 3 daily x2 days 2 daily x2 days 1 daily x2 days 1/2 daily x2 days then STOP Aspirin (Children's Aspirin) 81 Mg Tab.chew 81 MG PO DAILY@0830 for 30 Days, #30 TAB.CHEW Carvedilol (Carvedilol) 3.125 Mg Tablet 3.125 MG PO BID for 30 Days, #60 TAB Empagliflozin (Jardiance) 10 Mg Tablet 10 MG PO DAILY for 30 Days, #30 TAB Sacubitril/Valsartan (Entresto 24 mg-26 mg Tablet) 24 Mg-26 Mg Tablet 1 TABLET PO BID for 30 Days, #30 TAB Spironolactone (Aldactone) 25 Mg Tablet 25 MG PO DAILY@0830 for 30 Days, #30 TAB Discontinued Medications: Home Med List (No Home Medications) Each Discharge Summary: HPI: Patient is 64-year-old male who does not have any primary care physician not taking any medication. He denied using any recreational drug drinks two cups of wine. He does smoke cigars on regular basis. Patient came with his concern regarding shortness of breaths associated with racing heart but no chest pain. Denied any swelling over his legs. He mentioned off and on he was getting short of breaths on exertion but yesterday it got more worse. Patient denied any other symptoms He denies any chest pain, fever, chills or any other associated symptoms. No significant past medical history. Further workup done in ER he was very tachycardic with the elevated BNP in troponin level. Signs of hyponatremia present. Hospitalist services contacted for admission for suspected congestive heart failure and possible left lower lobe pneumonia Hospital course: 64-year-old male patient came to the hospital with chief complaint of shortness of breath. The patient was admitted with acute exacerbation of congestive heart failure, COPD exacerbation. The patient was started on antibiotics, steroids, nebulizations. Associated to that the patient also was evidenced fluid overloaded reason for which the patient was started on Lasix. The patient responded well to the treatment. Reporting significant improvement of his symptoms. Cardiology was involved, recommends to continue and optimize GDMT. GDMT was optimized, the patient remained hemodynamically stable. The patient will be discharged home. Discharge course: The patient remains hemodynamically stable. The patient will be discharged with the following instructions: Come back to the emergency department or call 911 if severe shortness of breath, chest pain, palpitations, lightheadedness, loss of consciousness is evidenced. Follow-up with rodent control worker Dr. Hernandes within 1-2 weeks. Take aspirin 81 mg one tablet daily. Take carvedilol one tablet of 3.125 mg every 12 hours. Take cefdinir one capsule of 300 mg every 12 hours for two days. Take Jardiance one tablet of 10 mg daily. Take Culturelle one capsule every 12 hours for 30 days. Take prednisone tablets of 10 mg: Four tablets of 10 mg for two days. Then take three tablets of 10 mg for other two days. Then take two tablets of 10 mg for other two days. Then take one tablet of 10 mg for two days. Then take half tablet of 10 mg for two days. Then stop. Take Entresto one tablet every 12 hours. Take spironolactone one tablet of 25 mg daily. Vital Signs Date Time Temp Pulse Resp B/P (MAP) Pulse Ox O2 Delivery O2 Flow Rate FiO2 01/29/25 11:00 97.6 74 18 101/64 (76) 98 Room Air 01/29/25 08:51 21 01/29/25 08:43 0 Physical exam: General: Well alert, well oriented, not confused, not agitated, not in acute distress, well cooperated during the physical. HEENT: Conjunctive are pink, sclerae clear, no icterus, pupil is equal in both sides, reactive to light, no ear discharge, no pharyngeal erythema or an edema. Neck: Supple, no JVD, no lymphadenopathy and thyromegaly. Chest: Decreased air entry in bilateral lungs, mild wheezing bilaterally. Cardiovascular: S1-S2 regular sinus rhythm and, regular rate, no gallops, no rubs, no murmurs Abdomen: No visible peristalsis, Bowel sounds present on auscultation, soft, nontender, no guarding, no rigidity Extremities: No obvious deformities, no pitting edema bilaterally, capillary refill intact, peripheral pulsations are intact on both sides Central Nervous System: No focal neurological deficits, no motor or sensory weakness in all 4 extremities, could move all 4 extremities, 2+ deep tendon reflexes, negative Babinski. Musculoskeletal: No joint swelling, deformities, inflammations, and no scoliosis and back tenderness Skin: Warm and dry. *Problems/Diagnosis: (1) Type 2 MA (myocardial infarction) Status: Acute (2) Acute exacerbation of CHF (congestive heart failure) Status: Acute (3) COPD exacerbation Status: Acute Total Time Spent on D/C: Up to 30 Minutes Date of Service: January 29, 2025 Billing Provider: ALEK MOBLEY MD, FRANCO LUIS, RES January 29, 2025 15:09
== END 2025-01-29 13:45 | disposition home or self-care (01) | DRG 280 ==
LOC: ER 08:44 → ED HOLD 13:38 → PCU 3S 16:19
PROVIDERS: ADMIT Internal Medicine; ATTEND Internal Medicine
PROC: B4201ZZ Computerized Tomography (CT Scan) of Abdominal Aorta using Low Osmolar Contrast (ICD-10-PCS; principal; 2025-01-27)
PROC: B4241ZZ Computerized Tomography (CT Scan) of Superior Mesenteric Artery using Low Osmolar Contrast (ICD-10-PCS; 2025-01-27)
PROC: B4281ZZ Computerized Tomography (CT Scan) of Bilateral Renal Arteries using Low Osmolar Contrast (ICD-10-PCS; 2025-01-27)
PROC: B42C1ZZ Computerized Tomography (CT Scan) of Pelvic Arteries using Low Osmolar Contrast (ICD-10-PCS; 2025-01-27)
PROC: B42H1ZZ Computerized Tomography (CT Scan) of Bilateral Lower Extremity Arteries using Low Osmolar Contrast (ICD-10-PCS; 2025-01-27)
PROC: B4211ZZ Computerized Tomography (CT Scan) of Celiac Artery using Low Osmolar Contrast (ICD-10-PCS; 2025-01-27)
DX: I50.23 Acute on chronic systolic (congestive) heart failure (principal); J15.69 Pneumonia due to other Gram-negative bacteria; I21.A1 Myocardial infarction type 2; J15.9 Unspecified bacterial pneumonia; J44.1 Chronic obstructive pulmonary disease with (acute) exacerbation; E87.1 Hypo-osmolality and hyponatremia; J44.0 Chronic obstructive pulmonary disease with (acute) lower respiratory infection; Z20.822 Contact with and (suspected) exposure to COVID-19; F17.210 Nicotine dependence, cigarettes, uncomplicated
CPT/HCPCS: 36415; 71045; 71275; 74174; 80053; 80061; 80305; 83605; 83880; 84484; 85025; 85379; 85610; 85730; 87040; 87081; 87811; 93005; 93306; 94640; 94760; 96365; 96366; 96367; 96372; 96375; 97116; 97161; 97530; 99285; G0378; J0456; J0696; J1644; J1938; J1940; J2270; J2919; J3490; J7040; Q9967